=== PATIENT | male | born 1965 | race Caucasian/White ===

== ENCOUNTER 2018-12-30 22:39 | Inpatient (IN) | payer SELFPAY ==
[2018-12-30] MEDS ORDERED: EPINEPHRINE INJ/PF 1 MG/1 ML AMPULE ONE (23:09)
[2018-12-30] MEDS ORDERED: DIPHENHYDRAMINE HCL 50 MG/ML VIAL ONE (23:09)
[2018-12-30] MEDS ORDERED: METHYLPREDNISOLONE INJ 125 MG/2 ML SDV ONE (23:09)
[2018-12-30] MEDS ORDERED: FAMOTIDINE INJ/PF 20 MG/2 ML SDV IV ONE ×2 (23:10→23:25)
--- NOTE | 2018-12-30 23:23 | ER Document Report ---
ED General - General TRAVEL OUTSIDE OF THE [place] IN LAST 30 DAYS: No <NAWAF DEE - Last Filed: 12/31/18 20:20> <MARILEE DOUGHERTY - Last Filed: 01/06/19 15:14> - General Chief Complaint: Rash Stated Complaint: Syncopal episode Time Seen by Provider: 12/30/18 23:14 Notes: Patient is a 53-year-old male that comes emergency department for chief complaint of breaking out into a rash over most of his body just prior to arrival. After arrival patient states he did have a little bit of stomach pain, and then he suddenly became pale and passed out per family. He was caught in the waiting room, he was brought back into the emergency department. Patient denies any current symptoms other than pain, he does have widespread rash, he denies any difficulty swallowing or breathing. When asked he does state that he has had chest pain for the past couple of days intermittently but not severe, he also states he has had a headache. He states he takes eyedrops but he takes no daily medications. He denies past medical history except retinitis. (NAWAF DEE) - Related Data Allergies/Adverse Reactions: prednisone [Prednisone] Allergy (Verified 08/28/13 09:58) Sulfa (Sulfonamide Antibiotics) Allergy (Verified 12/31/18 05:50) Past Medical History - General Information source: Patient, Relative - Social History Smoking Status: Unknown if Ever Smoked Drug Abuse: None Lives with: Family Family History: None - Immunizations Hx Diphtheria, Pertussis, Tetanus Vaccination: Yes <NAWAF DEE - Last Filed: 12/31/18 20:20> Review of Systems - Review of Systems Constitutional: See HPI EENT: No symptoms reported Cardiovascular: See HPI Respiratory: No symptoms reported Gastrointestinal: No symptoms reported Genitourinary: No symptoms reported Male Genitourinary: No symptoms reported Musculoskeletal: No symptoms reported Skin: See HPI Hematologic/Lymphatic: No symptoms reported Neurological/Psychological: See HPI <NAWAF DEE - Last Filed: 12/31/18 20:20> Physical Exam <NAWAF DEE - Last Filed: 12/31/18 20:20> - Vital signs Vitals: Temp Pulse Resp BP Pulse Ox 98.3 F 119 H 20 124/67 95 12/30/18 22:41 12/30/18 22:41 12/30/18 22:41 12/30/18 22:41 12/30/18 22:41 - Notes Notes: GENERAL: Pale and ill-appearing HEAD: Normocephalic, atraumatic. EYES: Pupils equal, round, and reactive to light. Extraocular movements intact. ENT: Oral mucosa moist, tongue midline. Oropharynx unremarkable. Airway patent. Nares patent, no nasal septal hematoma NECK: Full range of motion. Supple. Trachea midline. LUNGS: Clear to auscultation bilaterally, no wheezes, rales, or rhonchi. No re spiratory distress. HEART: Regular rate and rhythm. No murmur ABDOMEN: Soft, non-tender. Non-distended. GENITOURINARY: Deferred EXTREMITIES: Moves all 4 extremities spontaneously. No edema, normal radial and dorsalis pedis pulses bilaterally. No cyanosis. BACK: no cervical, thoracic, lumbar midline tenderness. No saddle anesthesia, normal distal neurovascular exam. Moves all extremities in full range of motion. NEUROLOGICAL: Alert and oriented x3. Normal speech. Cranial nerves II through XII grossly intact. SKIN: Widespread urticaria over the chest, back, arms, legs. Flushed face. (NAWAF DEE) Course - Laboratory Result Diagrams: 12/30/18 23:10 12/31/18 05:28 <NAWAF DEE - Last Filed: 12/31/18 20:20> - Laboratory Result Diagrams: 01/05/19 05:46 01/05/19 05:46 <MARILEE DOUGHERTY - Last Filed: 01/06/19 15:14> - Re-evaluation Re-evalutation: Patient presented with a developing widespread rash over the body which is scattered, erythematous, raised, appears to be hives. He then passed out. When I evaluate the patient he is responsive and awake but with his eyes closed. His face was extremely red along with the generalized rash. He was initially tachycardic but he is not at bedside, he is not hypotensive. Concern for possible anaphylaxis along with reported abdominal pain, he denies that he had chest pain before he passed out. Patient given epinephrine, 25 mg Benadryl, 20 mg of Pepcid, 125 mg of Solu-Medrol. I did find Dr. Whitley and brought him into the trauma bay, he was evaluated at bedside. 12/31/18 00:12 Patient started having shaking chills, he now tells us that he has been having some headaches, he does not have neurologic deficits. However. He does not have nuchal rigidity overtly. However his rash did not resolve with the a ntihistamines and epinephrine. CBC shows leukocytosis at 21.7, 8% bands. Concern for possible meningitis component. Patient only vaguely has a headache, he does not have nuchal rigidity on my exam. Giving 2 g Rocephin now, CAT scan of the head will be performed. EKG showing tachycardia and right bundle branch block. Discussed with Dr. Whitley. 12/31/18 01:02 Patient noted to be getting hypoxic all of a sudden, reevaluated him, initial check today was negative, initial lungs clear, however now I can clearly hear rales in both lung bases. Placed on oxygen temporarily, patient still desat urated into the upper 80s, he has increased work of breathing now. Placed on BiPAP. Updated Dr. Whitley. 12/31/18 02:03 I have been at patient's bedside continuously until now. Unfortunately patient continued to decompensate and even on 100% FiO2 patient was hypoxic at 88% with increasingly labored breathing. I discussed with patient who was still awake and alert, he states he is in agreement with intubation because he is not doing well at this time. I discussed this with and daughter at bedside, they state agreement with this plan. Dr. Whitley came to bedside and patient was in tubated without complication. Patient initially was still 88% for about 30 seconds and then oxygen saturation suddenly began increasing significantly and then maintained at about 98%. I placed a right IJ central line. Patient noted to be febrile with temperature Hooper at 102.4, this just develope d, giving Tylenol. CT will be performed. Patient became somewhat hypotensive, we had to increase his propofol up to 100 mcg to achieve sedation, suspect this is from the propofol, we are easing up on it. CTA is negative for acute findings, does not show the pneumonia I suspected, does not show a blood clot. Because we still do not have a source I am concerned he might have meningitis. I did discuss with family, attempted lumbar puncture, however I was not able to obtain CSF fluid, Dr. Dougherty was at bedside and he also could not obtain CSF fluid based on patient's anatomy. He has been covered previously with Rocephin, vancomycin, and he was also given Levaquin and acyclovir. Will discuss with hospitalist for admission with plan to have interventional radiology perform lumbar puncture later today. I did discuss this in detail with family. Discussed with Dr. Glez, hospitalist, patient admitted to the ICU. (NAWAF DEE) 01/06/19 15:12 Patient initially seen by Dr. Whitley and Nawaf WHITE. Patient required LP before admission and Dr. Whitley was not available and therefore I attempted LP to help rule out meningeal infection. I discussed the risks and benefits of the procedure with the family and went forward with the family. I was unfortunately unable to obtain CSF. Patient already receiving appropriate antibiotics and antivirals. (MARILEE DOUGHERTY) - Vital Signs Vital signs: Temp Pulse Resp BP Pulse Ox 97.7 F 66 16 134/81 H 99 01/05/19 12:27 01/05/19 12:27 01/05/19 12:27 01/05/19 12:27 01/05/19 12:27 - Laboratory Laboratory results interpreted by me: 12/30/18 12/30/18 12/30/18 23:10 23:10 23:10 WBC 21.4 H Plt Count 581 H Seg Neuts % (Manual) 86 H Band Neutrophils % 8 H Lymphocytes % (Manual) 4 L Monocytes % (Manual) 1 L Abs Neuts (Manual) 20.1 H ESR ABG pO2 ABG HCO3 ABG Total CO2 ABG O2 Saturation Sodium 135.6 L Glucose 204 H POC Glucose 167 H Lactic Acid C-Reactive Protein Urine Protein 12/30/18 12/30/18 12/30/18 23:10 23:40 23:58 WBC Plt Count Seg Neuts % (Manual) Band Neutrophils % Lymphocytes % (Manual) Monocytes % (Manual) Abs Neuts (Manual) ESR 30 H ABG pO2 ABG HCO3 ABG Total CO2 ABG O2 Saturation Sodium Glucose POC Glucose Lactic Acid 3.2 H C-Reactive Protein 23.6 H Urine Protein 12/31/18 12/31/18 01:23 01:40 WBC Plt Count Seg Neuts % (Manual) Band Neutrophils % Lymphocytes % (Manual) Monocytes % (Manual) Abs Neuts (Manual) ESR ABG pO2 317.3 H ABG HCO3 19.8 L ABG Total CO2 20.9 L ABG O2 Saturation 99.7 H Sodium Glucose POC Glucose Lactic Acid C-Reactive Protein Urine Protein 30 H Procedures - Central Line right IJ Consent obtained: Yes Central line pre-insertion: Sterile PPE donned, Betadine prep applied, Sterile drapes applied Central line lumen type: Triple Ultrasound guided: Yes Line secured with sutures: Yes Central line post-insertion: Blood return from lumens, Biopatch applied, Sutured, Sterile dressing applied, Position confirmed w/ CXR Number of attempts: 1 Complications: No - Intubation Orotracheal Airway evaluation: Normal anatomy Mallampati Classification: Class 2 Medications: Etomidate Intubation method: Orotracheal Blade type: Tae Blade size: 4 Equipment used: Glidescope ETT size: 7.5 ETT secured at: Teeth ETT secured at (cm): 25 Breath Sounds after Intubation: Equal End tidal CO2 confirmed: Yes Post Intubation Xray: Yes Intubation Complications: No complications <NAWAF DEE - Last Filed: 12/31/18 20:20> - Lumbar Puncture Lumbar puncture Consent obtained: Yes Lumbar puncture pre-procedure: Sterile PPE donned, Chloraprep applied, Sterile drapes applied Patient position: Lying Needle size: 22 Lumbar puncture location: L4-L5 Amount/type of drainage: 0mls Number of attempts: 2 Complications: No <MARILEE DOUGHERTY - Last Filed: 01/06/19 15:14> Critical Care Note - Critical Care Note Total time excluding time spent on procedures (mins): 60 - Sepsis, acute respiratory failure <NAWAF DEE - Last Filed: 12/31/18 20:20> - Critical Care Note Comments: Please allow 60 minutes of critical care time for evaluation and management of this critically ill patient with initially attempts to treat what appeared to be anaphylaxis, management of sepsis with IV fluids, antibiotics. Management of patient had developed acute respiratory failure with oxygen, BiPAP, and ultimately intubation. Management of vent, management of sedation, additional work-up performed, time spent with family members, time spent performing patient reevaluation's. Time spent performing consultation and admission to the ICU. (NAWAF DEE) Discharge - Discharge Admitting Provider: [facility] (Hospitalist) Unit Admitted: ICU <NAWAF DEE - Last Filed: 12/31/18 20:20> <MARILEE DOUGHRETY - Last Filed: 01/06/19 15:14> - Discharge Clinical Impression: Rash, Bandemia Acute respiratory failure Qualifiers: Respiratory failure complication: hypoxia Qualified Code(s): J96.01 - Acute respiratory failure with hypoxia Leukocytosis Qualifiers: Leukocytosis type: unspecified Qualified Code(s): D72.829 - Elevated white blood cell count, unspecified Condition: Fair Disposition: ADMITTED INPATIENT
[2018-12-30] MEDS ORDERED: NITROGLYCERIN 2% OINTMENT 1 GM PACKET TP ONE (23:25)
[2018-12-30] MEDS ORDERED: EPINEPHRINE INJ/PF 1 MG/1 ML AMPULE IM ONE (23:25)
[2018-12-30] MEDS ORDERED: DIPHENHYDRAMINE HCL 50 MG/ML VIAL IV ONE (23:25)
[2018-12-30] MEDS ORDERED: METHYLPREDNISOLONE INJ 125 MG/2 ML SDV IV ONE (23:26)
[2018-12-30 23:32] LABS: HEMATOCRIT 47.8 % (37.9-51.0); HEMOGLOBIN 16.2 g/dL (13.5-17.0); MEAN CORPUSCULAR HEMOGLOBIN 32.5 pg (27.0-33.4); MEAN CORPUSCULAR VOLUME 96 fl (80-97); RED CELL DISTRIBUTION WIDTH 13.6 % (11.5-14.0); WHITE BLOOD COUNT 21.4 10^3/uL (4.0-10.5)
[2018-12-30 23:39] LABS: ALBUMIN 3.9 g/dL (3.5-5.0); ALKALINE PHOSPHATASE 107 U/L (38-126); ANION GAP 11 (5-19); ASPARTATE AMINO TRANSFERASE 24 U/L (17-59); BILIRUBIN,DIRECT 0.3 mg/dL (0.0-0.4); BILIRUBIN,TOTAL 0.3 mg/dL (0.2-1.3); BLOOD UREA NITROGEN 20 mg/dL (7-20); CALCIUM 9.1 mg/dL (8.4-10.2); CARBON DIOXIDE 25 mmol/L (22-30); CHLORIDE 100 mmol/L (98-107); GLUCOSE 204 mg/dL (75-110); POTASSIUM 4.2 mmol/L (3.6-5.0); TOTAL PROTEIN 7.5 g/dL (6.3-8.2)
[2018-12-30 23:50] LABS: ABSOLUTE LYMPHOCYTES# (MANUAL) 0.9 10^3/uL (0.5-4.7); ABSOLUTE MONOCYTES # (MANUAL) 0.2 10^3/uL (0.1-1.4); BAND NEUTROPHILS % (MANUAL) 8 % (3-5); BASOPHILS % (MANUAL) 0 % (0-2); EOSINOPHILS % (MANUAL) 1 % (0-6); LYMPHOCYTES % (MANUAL) 4 % (13-45); MONOCYTES % (MANUAL) 1 % (3-13); PLATELET CLUMPS PRESENT; SEGMENTED NEUTROPHILS % (MAN) 86 % (42-78); TOTAL CELLS COUNTED 100
[2018-12-30 23:53] LABS: POIKILOCYTOSIS SLIGHT; ROULEAUX 1+
[2018-12-30 23:53] LABS: VENOUS BLOOD BASE EXCESS -2.4 mmol/L; VENOUS BLOOD HCO3 24.7 mmol/L (20-32); VENOUS BLOOD PCO2 50.6 mmHg (35-63); VENOUS BLOOD PH 7.31 (7.30-7.42)
--- NOTE | 2018-12-30 23:53 | ER Document Report ---
Doctor's Note Notes: 12/30/18 23:49 Patient seen and evaluated in conjunction with the mid-level provider. I did independently evaluate the patient myself. Please see the physician's sales office assistant note for further detail. Patient reportedly presented to the emergency department with diffuse hives. Passed out at triage. Patient rapidly brought back to the emergency department. Was covered in diffuse hives so potential for acute allergic reaction was considered. Epinephrine initially ordered. Patient then began to develop chest pain after that. Patient was placed on monitor. Having some tachycardia. Began treating his chest pain as well. His rash is improved. Is complaining of a headache as well. Review of systems: Positive for the following: Rash, headache, heart racing, chest pain, syncope. General: Alert + acute distress HEENT: Atraumatic, normocephalic, pupils equal round react to light and accommodation, extraocular muscles are intact, nose is non tender, posterior pharynx is without erythema or exudate. Tongue is unremarkable Heart: Heart rapid, no murmurs, no rubs, no clicks Lungs: Lungs clear to auscultation bilaterally, no wheezes, rhonchi, rales.+ Tachypnea Abdomen: Abdomen is soft, nontender, nondistended, normal bowel sounds Neuro: cranial nerves II through XII intact, reflexes intact, sensation intact, Extremities:Moving all extremities. Equal strength bilaterally in the upper lower extremities. No significant deformity Skin: Patient has a red lacy rash on face, chest, back. Does not appear urticarial. Psych: Normal insight. Normal judgment Assessment and plan: We will give Benadryl, Solu-Medrol, Pepcid. Checking cardiac labs. Checking inflammatory markers. Interesting presentation for sure. Will need to review the labs. If he continues to have rash and symptoms of headache and neck pain may be needed consider doing an LP. He is afebrile at this time. 12/31/18 03:44 Patient began to develop respiratory distress. Oxygen saturation respirations began to decrease. Began to have crackles at the bases of his lungs. Decision was made to proceed immediately with intubation. Patient was intubated. I was at the bedside the whole time with the PA who did perform the procedure. A central line was placed. Broad-spectrum antibiotics was given. Patient sent to CT scan for a CTA of the chest. Awaiting results at this time. Patient is doing much better and oxygenating much better on the vent. Critical Care Note - Critical Care Note Total time excluding time spent on procedures (mins): 35 Comments: Hypoxia, sepsis, medication administration.
[2018-12-30 23:54] LABS: PLATELET COUNT 581 10^3/uL (150-450)
--- NOTE | 2018-12-31 00:04 | RADIOLOGY REPORT (SQ) ---
EXAM DESCRIPTION: [facility]: XR CHEST 1 VIEW CLINICAL HISTORY: 53 years Male, chest pain COMPARISON: None. FINDINGS: Lungs are clear, with no focal infiltrate, pneumothorax, or pleural effusion. Mediastinum is within normal limits for this positioning. Bony structures are unremarkable. IMPRESSION: 1. No acute pulmonary findings.
[2018-12-31] MEDS ORDERED: LIDOCAINE 1% INJ-PF (10 MG/ML) 30 ML SDV INJ ONE ×2 (00:11→03:56)
[2018-12-31] MEDS ORDERED: CEFTRIAXONE 2 GM/D5W RTU 2 GM/50 ML RTUPB IV ONE (00:11)
[2018-12-31] MEDS ORDERED: VANCOMYCIN HCL INJ 1000 MG VIAL IV ONE (00:53)
[2018-12-31] MEDS ORDERED: LEVOFLOXACIN 750 MG/D5W RTU 750 MG/150 ML RTUPB IV ONE (00:57)
--- NOTE | 2018-12-31 01:00 | RADIOLOGY REPORT (SQ) ---
EXAM DESCRIPTION: CT HEAD WITHOUT IV CONTRAST COMPLETED DATE/TME: 12/31/2018 00:08 CLINICAL HISTORY: 53 years, Male, passed out, headache COMPARISON: None. TECHNIQUE: Axial CT images of the brain were obtained without contrast. Sagittal and coronal reformats were performed. [facility] 963 Images stored on PACS. All CT scanners at this facility use dose modulation, iterative reconstruction, and/or weight based dosing when appropriate to reduce radiation dose to as low as reasonably achievable (ALARA). [facility]: Dose Right [facility]: CareDose [facility]: Dose Right [facility]: Teradose 4D [facility]: [employer] LIMITATIONS: None. FINDINGS: There is no acute cortical infarct, hemorrhage, mass, edema, hydrocephalus, or extra-axial fluid collection. The solano-white matter differentiation is preserved. The paranasal sinuses and mastoid air cells are clear. There is no acute fracture. IMPRESSION: No acute intracranial abnormality. TECHNICAL DOCUMENTATION: Quality ID # 436: Final reports with documentation of one or more dose reduction techniques (e.g., Automated exposure control, adjustment of the mA and/or kV according to patient size, use of iterative reconstruction technique) copyright 2011 [employer]- All Rights Reserved
[2018-12-31] MEDS ORDERED: IPRATROPIUM/ALBUTEROL 0.5-2.5 MG/3 ML AMPUL NEB ONE (01:10)
[2018-12-31] MEDS ORDERED: PROPOFOL 1,000 MG/100 ML INFUS..BTL IV ONE ×2 (01:13→03:19)
[2018-12-31] MEDS ORDERED: ETOMIDATE INJ/PF 20 MG/10 ML SDV IV ONE ×2 (01:13→03:50)
[2018-12-31] MEDS ORDERED: KETAMINE HCL INJ 500 MG/10 ML VIAL ONE (01:13)
[2018-12-31] MEDS: PROPOFOL 1,000 MG/100 ML INFUS..BTL IV PRN ×5 (01:20→20:47)
[2018-12-31 01:23] LABS: INTERNATIONAL RATION (INR) 1.01; PARTIAL THROMBOPLASTIN TIME 28.3 SEC (23.5-35.8); PROTHROMBIN TIME 13.3 SEC (11.4-15.4)
[2018-12-31] MEDS ORDERED: FENTANYL CITRATE INJ/PF 100 MCG/2 ML AMPUL ONE ×4 (01:37→04:16)
[2018-12-31] MEDS ORDERED: ACETAMINOPHEN 650 MG SUPP.RECT PR ONE ×2 (01:57→01:58)
[2018-12-31] MEDS ORDERED: ACETAMINOPHEN 325 MG TABLET PO ONE (01:57)
[2018-12-31] MEDS ORDERED: NORMAL SALINE 1000 ML 1,000 ML IV ONE ×2 (02:01)
[2018-12-31] MEDS ORDERED: VECURONIUM BROMIDE INJ 10 MG VIAL IV ONE (02:16)
--- NOTE | 2018-12-31 02:38 | RADIOLOGY REPORT (SQ) ---
EXAM DESCRIPTION: RadLex: XR CHEST 1 VIEW CLINICAL HISTORY: 53 years Male, post intubation COMPARISON: 12/30/2018 at 2346 FINDINGS: There is partial atelectasis in the medial left lower lobe. No pneumothorax or pleural effusion. Endotracheal tube has been placed, tip 2 cm above david. Enteric tube extends into the distal stomach, possibly in the proximal duodenum. No mediastinal widening or shift. Bony structures are unremarkable. IMPRESSION: 1. Intubated 2. Enteric tube tip is either in the distal stomach or proximal duodenum.
--- NOTE | 2018-12-31 02:39 | RADIOLOGY REPORT (SQ) ---
Chest single view on 12/31/2018 at 2:12 AM CLINICAL INDICATION: Central line placement COMPARISON: 12/31/2018 at 1:37 AM FINDINGS: ET tube tip is in the mid to lower thoracic trachea approximately 1.8 cm above the level of the david. NG tube extends into the distal stomach. There is a new right IJ central venous catheter with its tip near the cavoatrial junction. There is no pneumothorax. A few overlying wires are noted. There is continued left lower lung opacity consistent with atelectasis and/or pneumonia. Lungs are otherwise clear. Cardiac, hilar and mediastinal contours are within normal limits. Pulmonary vascularity is within normal limits. IMPRESSION: Continued left lower lung atelectasis and/or pneumonia.
[2018-12-31 03:08] LABS: APPEARANCE,URINE SLIGHTLY-CLOUDY; BILIRUBIN,URINE NEGATIVE (NEGATIVE); GLUCOSE, URINE NEGATIVE (NEGATIVE); KETONES,URINE NEGATIVE (NEGATIVE); LEUKOCYTE ESTERASE,URINE NEGATIVE (NEGATIVE); NITRITE,URINE NEGATIVE (NEGATIVE); PROTEIN,URINE 30 mg/dL (NEGATIVE); URINE SPECIFIC GRAVITY 1.036; UROBILINOGEN,URINE NEGATIVE mg/dL (<2.0)
[2018-12-31 03:10] LABS: COLOR,URINE DARK YELLOW
[2018-12-31] MEDS ORDERED: FENTANYL CITRATE INJ/PF 100 MCG/2 ML AMPUL IV ONE ×4 (03:50→06:06)
[2018-12-31] MEDS ORDERED: ROCURONIUM BROMIDE INJ 50 MG/5 ML VIAL IV ONE (03:51)
--- NOTE | 2018-12-31 03:51 | RADIOLOGY REPORT (SQ) ---
EXAM DESCRIPTION: CT CHEST ANGIOGRAPHY WITHOUT THEN WITH IV CONTRAST COMPLETED DATE/TME: 12/31/2018 00:56 CLINICAL HISTORY: 53 years, Male, hypoxia, tachycardia COMPARISON: None. TECHNIQUE: Axial CT images of the chest were obtained after the administration of IV contrast. MPR and MIP reconstructions were performed. [facility] 943 Images stored on PACS. All CT scanners at this facility use dose modulation, iterative reconstruction, and/or weight based dosing when appropriate to reduce radiation dose to as low as reasonably achievable (ALARA). [facility]: Dose Right [facility]: CareDose [facility]: Dose Right [facility]: Teradose 4D [facility]: [employer] LIMITATIONS: None. FINDINGS: No large central pulmonary embolism is detected. There is suboptimal opacification of the pulmonary arteries. An endotracheal tube terminates approximately 1.2 cm above the david. A nasogastric tube terminates within the stomach. The thoracic aorta appears unremarkable. No evidence of aneurysm or dissection. There is no mediastinal or hilar lymphadenopathy. The lungs are clear except for some bibasilar subsegmental atelectasis. There is no pneumothorax or pleural effusion. : Diverticulosis is noted. There is no acute fracture or subluxation. IMPRESSION: No CT evidence of acute pulmonary embolism. Colonic diverticulosis without evidence of diverticulitis. TECHNICAL DOCUMENTATION: Quality ID # 436: Final reports with documentation of one or more dose reduction techniques (e.g., Automated exposure control, adjustment of the mA and/or kV according to patient size, use of iterative reconstruction technique) copyright 2011 [employer]- All Rights Reserved
[2018-12-31] MEDS ORDERED: ACYCLOVIR SODIUM INJ/PF 500 MG/10 ML SDV IV ONE (04:25)
--- NOTE | 2018-12-31 04:30 | ER Document Report ---
Doctor's Note Notes: 12/31/18 04:28 Patient is a patient of Dr. Whitley and Nawaf Recinoss. Patient apparently has presented with sepsis. Is concerned that there is not a source and may be this could be a case meningitis. Dr. Whitley is about to leave but does not wish to have the patient to have a lumbar puncture. I therefore agreed to assist in doing this for them. I did discuss the risk and benefits to the patient's family. They are agreeable with it. I did prep the patient with chlorhexidine. I did attempt multiple times was unfortunate unable to get any CSF return. Patient does have a history of ankylosing spondylitis likely making it more difficult to really get his vertebral spaces open. He has been covered for meningitis encephalitis with Rocephin, vancomycin, and acyclovir. Patient will be admitted to medical service.
[2018-12-31] MEDS ORDERED: ACETAMINOPHEN 325 MG TABLET NG PRN (04:33)
[2018-12-31] MEDS ORDERED: DEXTROSE 40% GEL 15 GM TUBE PO PRN ×2 (04:33)
[2018-12-31] MEDS ORDERED: GLUCAGON,HUMAN RECOMB 1 MG INJ IM PRN (04:33)
[2018-12-31] MEDS ORDERED: DEXTROSE 50%-WATER 25 GM/50 ML DISP.SYRIN IV PRN ×2 (04:33)
[2018-12-31] MEDS ORDERED: IPRATROPIUM/ALBUTEROL 0.5-2.5 MG/3 ML AMPUL NEB PRN (04:33)
[2018-12-31] MEDS ORDERED: VANCOMYCIN HCL 0 MG in DEXTROSE 5%-WATER 250 ML IV NR (04:45)
[2018-12-31 05:08] LABS: URINE AMPHETAMINES SCREEN NEGATIVE; URINE BARBITURATES SCREEN NEGATIVE; URINE BENZODIAZEPINES SCREEN NEGATIVE; URINE COCAINE SCREEN NEGATIVE; URINE MARIJUANA (THC) SCREEN NEGATIVE; URINE METHADONE SCREEN NEGATIVE; URINE PHENCYCLIDINE SCREEN NEGATIVE
[2018-12-31 05:10] LABS: INTERNATIONAL RATION (INR) 1.09; PARTIAL THROMBOPLASTIN TIME 24.3 SEC (23.5-35.8); PROTHROMBIN TIME 14.1 SEC (11.4-15.4)
[2018-12-31 05:23] LABS: ARTERIAL BLOOD BASE EXCESS -4.7 mmol/L; ARTERIAL BLOOD FIO2 100%; ARTERIAL BLOOD H2CO3 1.07 mmol/L (1.05-1.35); ARTERIAL BLOOD HCO3 19.8 mmol/L (20-24); ARTERIAL BLOOD O2 SATURATION 99.7 % (94-98); ARTERIAL BLOOD PCO2 35.6 mmHg (35-45); ARTERIAL BLOOD PH 7.36 (7.35-7.45); ARTERIAL BLOOD PO2 317.3 mmHg (80-100); ARTERIAL BLOOD TOTAL CO2 20.9 mmol/L (23-27)
[2018-12-31 05:53] LABS: ARTERIAL BLOOD BASE EXCESS -4.8 mmol/L; ARTERIAL BLOOD H2CO3 1.04 mmol/L (1.05-1.35); ARTERIAL BLOOD HCO3 19.7 mmol/L (20-24); ARTERIAL BLOOD PCO2 34.7 mmHg (35-45); ARTERIAL BLOOD PH 7.37 (7.35-7.45); ARTERIAL BLOOD PO2 158.6 mmHg (80-100); ARTERIAL BLOOD TOTAL CO2 20.7 mmol/L (23-27)
[2018-12-31 05:57] LABS: ARTERIAL BLOOD FIO2 50%
[2018-12-31 05:58] LABS: ANION GAP 9 (5-19); BLOOD UREA NITROGEN 19 mg/dL (7-20); CARBON DIOXIDE 22 mmol/L (22-30); CHLORIDE 104 mmol/L (98-107); GLUCOSE 191 mg/dL (75-110)
[2018-12-31] MEDS ORDERED: ACYCLOVIR SODIUM 750 MG in NORMAL SALINE 250 ML IV SCH (06:00)
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
[2018-12-31] MEDS ORDERED: DEXTROSE 5%-WATER 250 ML with NOREPINEPHRINE BITARTRATE 4 MG IV PRN ×2 (06:25)
[2018-12-31] MEDS ORDERED: ACYCLOVIR SODIUM INJ/PF 500 MG/10 ML SDV IV PRN (06:48)
[2018-12-31] MEDS ORDERED: MIDAZOLAM HCL 50 MG/100 ML RTUINJ ONE (06:53)
[2018-12-31] MEDS: NORMAL SALINE 1000 ML 1,000 ML IV PRN ×2 (07:40→09:21)
[2018-12-31] MEDS: HEPARIN SOD (PORCINE) 5,000 UNIT/ML 1 ML VIAL SUBCUT SCH ×3 (07:42→22:19)
[2018-12-31] MEDS: IPRATROPIUM/ALBUTEROL 0.5-2.5 MG/3 ML AMPUL NEB SCH ×2 (08:57→16:04)
[2018-12-31] MEDS: PANTOPRAZOLE SODIUM 40 MG VIAL IV SCH ×2 (10:56→22:19)
[2018-12-31] MEDS: ACYCLOVIR SODIUM 750 MG in NORMAL SALINE 250 ML IV SCH ×2 (10:57→17:05)
[2018-12-31] MEDS: DEXTROSE 5%-NORMAL SALINE 1,000 ML IV PRN (11:00)
--- NOTE | 2018-12-31 11:04 | Progress Note ---
Provider Note Provider Note: This is 53's old male patient who presented with chief complaint of headache and rash for several days duration. At ER patient become unresponsive and severe respiratory distress for which she was emergently intubated. His blood work shows market leukocytosis with bandemia, and lactic acidosis. Meningitis suspected on this patient and he has been empirically started on acyclovir, ceftriaxone, vancomycin and I added dexamethasone to him. Lumbar puncture was attempted in the ER but failed. Patient admitted to ICU and anesthesia successful in doing lumbar puncture. CSF analysis and Gram stain culture are pending. Accepted this patient.
[2018-12-31] MEDS: MIDAZOLAM HCL 50 MG/100 ML RTUINJ IV PRN ×3 (12:09→22:20)
[2018-12-31] MEDS: VANCOMYCIN HCL 1,250 MG in DEXTROSE 5%-WATER 250 ML IV SCH ×2 (12:10→20:48)
[2018-12-31 12:22] LABS: APPEARANCE ALL TUBES CLEAR; COLOR ALL TUBES COLORLESS; CSF TOTAL VOLUME 28.1 CC; CSF TUBE NUMBER 3; VOLUME TUBE 1 6.8 CC; VOLUME TUBE 2 7.8 CC; VOLUME TUBE 3 6.5 CC
[2018-12-31 12:23] LABS: RED BLOOD CELL,CSF 0 /uL (0-10); WHITE BLOOD CELL,CSF 0 /uL (0-5)
[2018-12-31] MEDS ORDERED: METHYLPREDNISOLONE INJ 125 MG/2 ML SDV IV SCH (14:00)
[2018-12-31] MEDS: DEXAMETHASONE SOD PHOS INJ 10 MG/1 ML VIAL IV SCH ×2 (14:21→22:19)
--- NOTE | 2018-12-31 18:11 | Progress Note ---
Provider Note Provider Note: ID Telephone Consultation Note Asked to review chart of Mr Rios, a 53 year old man who presented to [facility] today 12/31/18 with acute onset of diffuse rash and an episode of syncope. The patient was described as having widespread scattered erythematous raised skin lesions over his body that appeared to be hives and a flushed face when he was seen by the mid-level ED provider. He complained of headache and chest pain after he received epinephrine, antihistamines and solu- medrol. Family members also endorsed that he had several days of headache prior to presentation, no known sick contacts, no previous history of meningitis. When evaluated by the ED attending, the patient was not febrile initially; he was noted to have unremarkable ENT exam including no pharyngeal exudates or injection, no cardiac murmurs, clear lungs, tachypnea, no focal neurological deficits, and a lacy red rash on his face, chest and back that no longer appeared urticarial. The patient later developed worsening hypoxia in the ED along with rales in the bases, failed a trial of BiPAP, and required intubation for progressively labored breathing. Labs notable for WBC count 21, plts 581, lactic acid 3.2, sodium 135, AST and ALT WNL, BNP not elevated. LP performed - CSF clear colorless, 0 WBC, 0 RBCs reported. 2 sets of Blood cultures, CSF gram stain and culture, urine legionella antigen, and mycoplasma serologies ordered - all pending. Imaging has included CXR - no acute cardiopulmonary process CTA chest - no PE, bibasilar subsegmental atelectasis Repeat CXR read as showing partial atelectasis or consolidation in medial L lower lobe CT head without IV contrast - no acute intracranial abnormality Impression/Recommendations - Differential diagnosis for fever and rash is extensive. Description of patient having hives when he presented - It's uncommon for adults to have infection- related urticaria, and it is not associated with specific infectious etiologies (in contrast to rashes like vesicles on erythematous base that would suggest HSV or VZV, for example). - Question of splenectomy history has been posed given his physical exam, and if so, splenctomized patients are at increased risk for sepsis from encapsulated organisms, such as Streptococcus pneumoniae, Haemophilus influenzae, Neisseria species, Capnocytophaga species. Perhaps family members would be to confirm splenectomy history or features like Conner-Raven bodies could be looked for on CBC. - Consider adding HIV test - While awaiting results of blood cultures, current antibiotic therapy is reasonable. - Little information is available at present, apart from CSF formula, which is not consistent with meningitis. - If he does not have a rash consistent with chickenpox or shingles, acyclovir can be discontinued. - With it currently being summer in [place], potential for tick borne illnesses (e.g. RMSF and ehrlichiosis) would need to be kept in mind if there is any tick exposure, although no laboratory features point in this direction, and rash description is also not consistent with RMSF. Would query family regarding risk and if any concern, consider starting doxycycline. Kartik Perez MD [facility] Infectious Diseases pager [phone]
[2018-12-31] MEDS ORDERED: CEFTRIAXONE 1 GM/D5W RTU 1 GM/50 ML RTUPB IV SCH (22:00)
[2018-12-31] MEDS: CEFTRIAXONE SODIUM 1,000 MG in DEXTROSE 5%-WATER 50 ML IV SCH (22:19)
[2019-01-01] MEDS: IPRATROPIUM/ALBUTEROL 0.5-2.5 MG/3 ML AMPUL NEB SCH ×3 (00:29→16:15)
[2019-01-01] MEDS: ACYCLOVIR SODIUM 750 MG in NORMAL SALINE 250 ML IV SCH ×2 (01:57→10:38)
[2019-01-01] MEDS: MIDAZOLAM HCL 50 MG/100 ML RTUINJ IV PRN ×2 (04:24→11:15)
[2019-01-01] MEDS: VANCOMYCIN HCL 1,250 MG in DEXTROSE 5%-WATER 250 ML IV SCH ×2 (04:24→12:19)
[2019-01-01 04:40] LABS: ARTERIAL BLOOD BASE EXCESS -1.5 mmol/L; ARTERIAL BLOOD H2CO3 1.24 mmol/L (1.05-1.35); ARTERIAL BLOOD HCO3 23.6 mmol/L (20-24); ARTERIAL BLOOD O2 SATURATION 86.3 % (94-98); ARTERIAL BLOOD PCO2 41.1 mmHg (35-45); ARTERIAL BLOOD PH 7.38 (7.35-7.45); ARTERIAL BLOOD PO2 52.3 mmHg (80-100); ARTERIAL BLOOD TOTAL CO2 24.9 mmol/L (23-27)
[2019-01-01 04:42] LABS: ARTERIAL BLOOD FIO2 35%
[2019-01-01 04:49] LABS: ABSOLUTE MONOCYTES (AUTO) 0.4 10^3/uL (0.1-1.4); ABSOLUTE NEUT (AUTO) 13.7 10^3/uL (1.7-8.2); BASOPHILS % (AUTO) 0.2 % (0-2); HEMATOCRIT 36.8 % (37.9-51.0); LYMPHOCYTES % (AUTO) 6.6 % (13-45); MEAN CORPUSCULAR HGB CONC 33.5 g/dL (32.0-36.0); MEAN CORPUSCULAR VOLUME 96 fl (80-97); MONOCYTES % (AUTO) 2.3 % (3-13); PLATELET COUNT 387 10^3/uL (150-450); RED BLOOD COUNT 3.85 10^6/uL (4.35-5.55); RED CELL DISTRIBUTION WIDTH 13.4 % (11.5-14.0); SEGMENTED NEUTROPHILS % (AUTO) 90.9 % (42-78); TOTAL CELLS COUNTED % (AUTO) 100 %
[2019-01-01 04:53] LABS: HEMOGLOBIN 12.3 g/dL (13.5-17.0)
[2019-01-01 05:12] LABS: ANION GAP 9 (5-19); BLOOD UREA NITROGEN 13 mg/dL (7-20); CALCIUM 8.3 mg/dL (8.4-10.2); CARBON DIOXIDE 23 mmol/L (22-30); CHLORIDE 104 mmol/L (98-107); GLUCOSE 171 mg/dL (75-110); POTASSIUM 4.4 mmol/L (3.6-5.0)
[2019-01-01] MEDS: HEPARIN SOD (PORCINE) 5,000 UNIT/ML 1 ML VIAL SUBCUT SCH ×3 (06:26→21:00)
[2019-01-01] MEDS: DEXAMETHASONE SOD PHOS INJ 10 MG/1 ML VIAL IV SCH (06:26)
[2019-01-01] MEDS: PROPOFOL 1,000 MG/100 ML INFUS..BTL IV PRN (06:46)
[2019-01-01 08:45] LABS: ARTERIAL BLOOD BASE EXCESS -1.7 mmol/L; ARTERIAL BLOOD FIO2 40%; ARTERIAL BLOOD H2CO3 0.89 mmol/L (1.05-1.35); ARTERIAL BLOOD O2 SATURATION 98.8 % (94-98); ARTERIAL BLOOD PCO2 29.6 mmHg (35-45); ARTERIAL BLOOD PH 7.47 (7.35-7.45); ARTERIAL BLOOD PO2 131.7 mmHg (80-100); ARTERIAL BLOOD TOTAL CO2 21.9 mmol/L (23-27)
[2019-01-01] MEDS: DEXTROSE 5%-NORMAL SALINE 1,000 ML IV PRN ×2 (08:45→18:00)
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
--- NOTE | 2019-01-01 08:54 | RADIOLOGY REPORT (SQ) ---
EXAM DESCRIPTION: CHEST SINGLE VIEW COMPLETED DATE/TIME: 01/01/2019 6:10 am REASON FOR STUDY: pna/resp failure COMPARISON: CT chest 12/31/2018 Chest films 12/30/2018, 12/31/2018 EXAM PARAMETERS: NUMBER OF VIEWS: One view. TECHNIQUE: Single frontal radiographic view of the chest acquired. RADIATION DOSE: NA LIMITATIONS: None. FINDINGS: LUNGS AND PLEURA: Bandlike consolidation at the left lung base likely retrocardiac atelect asis. No gross fluffy alveolar infiltrates worrisome for pulmonary edema. No pleural effusion or pneumothorax. MEDIASTINUM AND HILAR STRUCTURES: No masses. Contour normal. HEART AND VASCULAR STRUCTURES: Heart normal in size. Normal vasculature. BONES: No acute findings. HARDWARE: Endotracheal tube tip 4 cm above the david. Nasogastric tube tip and side port in the sto mach. Right jugular central line tip in the right atrium. OTHER: No other significant finding. IMPRESSION: Bandlike left retrocardiac atelectasis. Tubes and lines in good positioning TECHNICAL DOCUMENTATION: JOB ID: [id number] [employer]- All Rights Reserved Reading location - IP/workstation name: [email or web address]
[2019-01-01] MEDS ORDERED: NORMAL SALINE INJ/PF 0.9% 10 ML SDV IV PRN (09:05)
[2019-01-01] MEDS: PANTOPRAZOLE SODIUM 40 MG VIAL IV SCH ×2 (10:38→21:00)
[2019-01-01 12:31] LABS: VANCOMYCIN,TROUGH 9.1 ug/mL (5.0-20.0)
[2019-01-01] MEDS ORDERED: DEXAMETHASONE SOD PHOSPHATE INJ 4 MG/1 ML VIAL ONE (14:29)
[2019-01-01] MEDS: KETOROLAC TROMETHAMINE INJ/PF 30 MG/1 ML SDV IV PRN ×2 (16:57→23:52)
[2019-01-01] MEDS: VANCOMYCIN HCL 1,500 MG in DEXTROSE 5%-WATER 250 ML IV SCH ×2 (16:59→23:53)
[2019-01-01] MEDS ORDERED: ACETAMINOPHEN 325 MG TABLET PO PRN (19:00)
[2019-01-01] MEDS: CEFTRIAXONE SODIUM 1,000 MG in DEXTROSE 5%-WATER 50 ML IV SCH (21:00)
[2019-01-01] MEDS ORDERED: METOPROLOL TARTRATE PF/INJ 5 MG/5 ML SDV IV PRN (22:12)
[2019-01-01] MEDS ORDERED: DEXTROSE 5%-NORMAL SALINE 1,000 ML IV PRN (22:14)
[2019-01-02] MEDS: IPRATROPIUM/ALBUTEROL 0.5-2.5 MG/3 ML AMPUL NEB SCH ×2 (00:25→08:15)
[2019-01-02] MEDS ORDERED: NALBUPHINE HCL INJ 10 MG/1 ML AMPULE IV PRN (01:12)
[2019-01-02] MEDS ORDERED: HYDRALAZINE HCL INJ/PF 20 MG/1 ML SDV IV ONE (01:45)
[2019-01-02] MEDS: HEPARIN SOD (PORCINE) 5,000 UNIT/ML 1 ML VIAL SUBCUT SCH ×3 (05:24→22:39)
[2019-01-02] MEDS: VANCOMYCIN HCL 1,500 MG in DEXTROSE 5%-WATER 250 ML IV SCH (05:24)
[2019-01-02 07:04] LABS: ARTERIAL BLOOD BASE EXCESS -0.6 mmol/L; ARTERIAL BLOOD FIO2 ROOM AIR; ARTERIAL BLOOD H2CO3 1.16 mmol/L (1.05-1.35); ARTERIAL BLOOD HCO3 23.9 mmol/L (20-24); ARTERIAL BLOOD O2 SATURATION 95.7 % (94-98); ARTERIAL BLOOD PCO2 38.6 mmHg (35-45); ARTERIAL BLOOD PH 7.41 (7.35-7.45); ARTERIAL BLOOD PO2 78.1 mmHg (80-100)
[2019-01-02 07:05] LABS: HEMATOCRIT 35.5 % (37.9-51.0); HEMOGLOBIN 11.7 g/dL (13.5-17.0); MEAN CORPUSCULAR HEMOGLOBIN 31.4 pg (27.0-33.4); MEAN CORPUSCULAR HGB CONC 32.8 g/dL (32.0-36.0); MEAN CORPUSCULAR VOLUME 96 fl (80-97); PLATELET COUNT 376 10^3/uL (150-450); RED BLOOD COUNT 3.72 10^6/uL (4.35-5.55); RED CELL DISTRIBUTION WIDTH 13.7 % (11.5-14.0); WHITE BLOOD COUNT 26.7 10^3/uL (4.0-10.5)
[2019-01-02 07:12] LABS: ANION GAP 6 (5-19); BLOOD UREA NITROGEN 19 mg/dL (7-20); CALCIUM 8.5 mg/dL (8.4-10.2); CARBON DIOXIDE 27 mmol/L (22-30); CHLORIDE 105 mmol/L (98-107); GLUCOSE 153 mg/dL (75-110); PHOSPHORUS 4.1 mg/dL (2.5-4.5); POTASSIUM 4.3 mmol/L (3.6-5.0)
--- NOTE | 2019-01-02 07:39 | EKG REPORT ---
SEVERITY:- ABNORMAL ECG - SINUS ARRHYTHMIA, RATE 77-96 PROBABLE LEFT ATRIAL ABNORMALITY IVCD, CONSIDER ATYPICAL RBBB : Confirmed by: Silvio Jose MD 02-Jan-2019 07:38:49
[2019-01-02 07:51] LABS: ABSOLUTE LYMPHOCYTES# (MANUAL) 2.4 10^3/uL (0.5-4.7); ABSOLUTE MONOCYTES # (MANUAL) 0.8 10^3/uL (0.1-1.4); BASOPHILS % (MANUAL) 0 % (0-2); EOSINOPHILS % (MANUAL) 0 % (0-6); LYMPHOCYTES % (MANUAL) 7 % (13-45); MONOCYTES % (MANUAL) 3 % (3-13); SEGMENTED NEUTROPHILS % (MAN) 88 % (42-78); TOTAL CELLS COUNTED 100
[2019-01-02 07:52] LABS: BURR CELLS 1+; HOWELL-JOLLY BODIES PRESENT; OVALOCYTES 1+; PLATELET COMMENT ADEQUATE; POIKILOCYTOSIS 1+
--- NOTE | 2019-01-02 08:17 | RADIOLOGY REPORT (SQ) ---
EXAM DESCRIPTION: CHEST SINGLE VIEW COMPLETED DATE/TIME: 01/02/2019 6:21 am REASON FOR STUDY: pna/resp fail COMPARISON: 01/01/2019 EXAM PARAMETERS: NUMBER OF VIEWS: One view. TECHNIQUE: Single frontal radiographic view of the chest acquired. RADIATION DOSE: NA LIMITATIONS: None. FINDINGS: LUNGS AND PLEURA: Improved biapical left basilar aeration. Minimal residual patchy left b asilar opacities, likely atelectasis. No large effusion. No appreciable pneumothorax. MEDIASTINUM AND HILAR STRUCTURES: Stable. HEART AND VASCULAR STRUCTURES: Stable. Atherosclerotic aorta. BONES: No acute findings. HARDWARE: Extubation and removal of the enteric tube. Right internal jugular central venous catheter tip overlies right atrium. OTHER: No other significant finding. IMPRESSION: Extubation. Improved aeration with minimal residual left basilar opacities, likely atelectasis. TECHNICAL DOCUMENTATION: JOB ID: [id number]- All Rights Reserved Reading location - IP/workstation name: [email or web address]
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
[2019-01-02 09:51] LABS: CREATINE KINASE MB 0.31 ng/mL (<4.55)
[2019-01-02 10:00] LABS: TROPONIN I < 0.012 ng/mL
--- NOTE | 2019-01-02 12:20 | EKG REPORT ---
SEVERITY:- ABNORMAL ECG - SINUS BRADYCARDIA PROBABLE LEFT ATRIAL ABNORMALITY RIGHT BUNDLE BRANCH BLOCK PROBABLE INFERIOR INFARCT, AGE INDETERMINATE : Confirmed by: Silvio Jose MD 02-Jan-2019 12:19:54
[2019-01-02] MEDS ORDERED: IPRATROPIUM/ALBUTEROL 0.5-2.5 MG/3 ML AMPUL NEB PRN (13:52)
[2019-01-02] MEDS: KETOROLAC TROMETHAMINE INJ/PF 30 MG/1 ML SDV IV PRN ×2 (14:22→22:20)
[2019-01-02] MEDS: PANTOPRAZOLE SODIUM 40 MG TABLET.DR PO SCH ×2 (14:22→18:18)
[2019-01-02 17:11] LABS: CREATINE KINASE MB 0.29 ng/mL (<4.55)
[2019-01-02 17:17] LABS: TROPONIN I < 0.012 ng/mL
[2019-01-03 01:11] LABS: CREATINE KINASE MB < 0.22 ng/mL (<4.55); TROPONIN I < 0.012 ng/mL
[2019-01-03] MEDS: HEPARIN SOD (PORCINE) 5,000 UNIT/ML 1 ML VIAL SUBCUT SCH ×3 (05:21→22:30)
[2019-01-03] MEDS: PANTOPRAZOLE SODIUM 40 MG TABLET.DR PO SCH ×2 (05:21→18:16)
[2019-01-03] MEDS: KETOROLAC TROMETHAMINE INJ/PF 30 MG/1 ML SDV IV PRN ×2 (05:22→12:32)
[2019-01-03 06:05] LABS: HEMATOCRIT 35.7 % (37.9-51.0); HEMOGLOBIN 11.8 g/dL (13.5-17.0); MEAN CORPUSCULAR HEMOGLOBIN 31.7 pg (27.0-33.4); MEAN CORPUSCULAR HGB CONC 33.2 g/dL (32.0-36.0); MEAN CORPUSCULAR VOLUME 95 fl (80-97); PLATELET COUNT 381 10^3/uL (150-450); RED BLOOD COUNT 3.74 10^6/uL (4.35-5.55); RED CELL DISTRIBUTION WIDTH 13.4 % (11.5-14.0); WHITE BLOOD COUNT 22.4 10^3/uL (4.0-10.5)
[2019-01-03 06:14] LABS: ANION GAP 5 (5-19); BLOOD UREA NITROGEN 20 mg/dL (7-20); CALCIUM 8.4 mg/dL (8.4-10.2); CARBON DIOXIDE 29 mmol/L (22-30); CHLORIDE 104 mmol/L (98-107); GLUCOSE 116 mg/dL (75-110); POTASSIUM 4.1 mmol/L (3.6-5.0)
[2019-01-03 07:20] LABS: MYCOPLASMA PNEUMONIAE IGG AB 405 U/mL (0-99); MYCOPLASMA PNEUMONIAE IGM AB <770 U/mL (0-769)
[2019-01-03 07:23] LABS: ALBUMIN 2.8 g/dL (3.5-5.0); ALKALINE PHOSPHATASE 52 U/L (38-126); ASPARTATE AMINO TRANSFERASE 20 U/L (17-59); BILIRUBIN,DIRECT 0.2 mg/dL (0.0-0.4); BILIRUBIN,TOTAL 0.4 mg/dL (0.2-1.3); TOTAL PROTEIN 5.7 g/dL (6.3-8.2)
[2019-01-03 07:40] LABS: ABSOLUTE LYMPHOCYTES# (MANUAL) 8.7 10^3/uL (0.5-4.7); ABSOLUTE MONOCYTES # (MANUAL) 1.1 10^3/uL (0.1-1.4); BASOPHILS % (MANUAL) 0 % (0-2); EOSINOPHILS % (MANUAL) 0 % (0-6); LYMPHOCYTES % (MANUAL) 38 % (13-45); MONOCYTES % (MANUAL) 5 % (3-13); SEGMENTED NEUTROPHILS % (MAN) 56 % (42-78); TOTAL CELLS COUNTED 100
[2019-01-03 07:41] LABS: BURR CELLS 1+; PLATELET COMMENT ADEQUATE; POIKILOCYTOSIS 1+; SCHISTOCYTES SLIGHT
[2019-01-03] MEDS: BUTALB/ACETAMINOPHEN/CAFFEINE 1 TAB EACH PO PRN ×2 (16:26→22:30)
--- NOTE | 2019-01-03 21:12 | PDOC PROGRESS REPORT ---
Subjective Progress Note for:: 01/03/19 Subjective:: Patient is resting in bed with his eyes closed. Is complaining of significant headache and neck ache. Also had abdominal discomfort but this was relieved with repositioning of his Hooper catheter. Large amount of urine drained when he sat at the edge of the bed. Reason For Visit: SEPSIS, MENINGITIS, ACUTE RESP FAILURE Physical Exam Vital Signs: Temp Pulse Resp BP Pulse Ox 98.2 F 65 16 137/87 H 97 01/03/19 11:07 01/03/19 11:07 01/03/19 11:07 01/03/19 11:07 01/03/19 11:07 Intake & Output 01/02/19 01/03/19 01/04/19 06:59 06:59 06:59 Intake Total 1736 480 260 Output Total 3120 930 775 Balance -1384 -450 -515 Weight 86.5 kg 79.4 kg General appearance: PRESENT: cooperative, severe distress - Moderate to severe distress, well-developed Head exam: PRESENT: atraumatic, normocephalic Eye exam: PRESENT: conjunctiva pink. ABSENT: scleral icterus Ear exam: PRESENT: normal external ear exam Mouth exam: PRESENT: dry mucosa, tongue midline Neck exam: PRESENT: tenderness - Posteriorly. No rigidity. ABSENT: meningismus Respiratory exam: PRESENT: clear to auscultation federico, symmetrical, unlabored. ABSENT: rales, rhonchi, tachypnea, wheezes Cardiovascular exam: PRESENT: RRR, +S1, +S2 GI/Abdominal exam: PRESENT: normal bowel sounds, soft. ABSENT: distended, tenderness Gentrourinary exam: PRESENT: indwelling catheter Extremities exam: ABSENT: joint swelling, pedal edema Musculoskeletal exam: PRESENT: normal inspection Neurological exam: PRESENT: alert, awake, oriented to person, oriented to place, oriented to time, oriented to situation, CN II-XII grossly intact Psychiatric exam: PRESENT: appropriate affect - Affect reflects his discomfort. ABSENT: agitated, anxious Focused psych exam: PRESENT: delusional, restlessness Results Laboratory Results: 01/03/19 05:18 01/03/19 05:18 01/03/19 01/03/19 05:18 05:18 WBC 22.4 H RBC 3.74 L Hgb 11.8 L Hct 35.7 L MCV 95 MCH 31.7 MCHC 33.2 RDW 13.4 Plt Count 381 Seg Neutrophils % Not Reportable Lymphocytes % Not Reportable Monocytes % Not Reportable Eosinophils % Not Reportable Basophils % Not Reportable Absolute Neutrophils Not Reportable Absolute Lymphocytes Not Reportable Absolute Monocytes Not Reportable Absolute Eosinophils Not Reportable Absolute Basophils Not Reportable Sodium 138.1 Potassium 4.1 Chloride 104 Carbon Dioxide 29 Anion Gap 5 BUN 20 Creatinine 0.51 L Est GFR ( Amer) > 60 Est GFR (Non-Af Amer) > 60 Glucose 116 H Calcium 8.4 Magnesium 2.2 Total Bilirubin 0.4 AST 20 Alkaline Phosphatase 52 Total Protein 5.7 L Albumin 2.8 L 12/31/18 10:30 Cerebral Spinal Fluid - Tube 2 (Csf) Gram Stain - Final 12/31/18 10:30 Cerebral Spinal Fluid - Tube 2 (Csf) CSF Culture - Final NO GROWTH 3 DAYS 12/30/18 12/30/18 12/31/18 23:10 23:10 05:28 Creatine Kinase CK-MB (CK-2) Troponin I < 0.012 < 0.012 NT-Pro-B Natriuret Pep 12/31/18 01/02/19 01/02/19 12:04 09:00 09:00 Creatine Kinase 32 L CK-MB (CK-2) 0.31 Troponin I < 0.012 < 0.012 NT-Pro-B Natriuret Pep 01/02/19 01/02/19 01/03/19 16:15 16:15 00:15 Creatine Kinase 21 L 28 L CK-MB (CK-2) 0.29 Troponin I < 0.012 NT-Pro-B Natriuret Pep 01/03/19 00:15 Creatine Kinase CK-MB (CK-2) < 0.22 Troponin I < 0.012 NT-Pro-B Natriuret Pep Impressions: Head CT 12/31/18 00:08 IMPRESSION: No acute intracranial abnormality. TECHNICAL DOCUMENTATION: Quality ID # 436: Final reports with documentation of one or more dose reduction techniques (e.g., Automated exposure control, adjustment of the mA and/or kV according to patient size, use of iterative reconstruction technique) copyright 2011 [employer]- All Rights Reserved Chest/Abdomen CTA 12/31/18 00:56 IMPRESSION: No CT evidence of acute pulmonary embolism. Colonic diverticulosis without evidence of diverticulitis. TECHNICAL DOCUMENTATION: Quality ID # [id number]: Final reports with documentation of one or more dose reduction techniques (e.g., Automated exposure control, adjustment of the mA and/or kV according to patient size, use of iterative reconstruction technique) copyright 2011 [employer]- All Rights Reserved Chest X-Ray 01/02/19 06:00 IMPRESSION: Extubation. Improved aeration with minimal residual left basilar opacities, likely atelectasis. Assessment and Plan - Diagnosis (1) Acute respiratory failure Qualifiers: Respiratory failure complication: hypoxia Qualified Code(s): J96.01 - Acute respiratory failure with hypoxia Is this a current diagnosis for this admission?: Yes Plan: 01/03/2019-acute respiratory failure resolved (2) Encephalopathy acute Is this a current diagnosis for this admission?: Yes Plan: 01/03/2019-patient currently without encephalopathy. It was felt to be due to possible infection. All cultures were negative. He did have a positive mycoplasma IgG but the IgM was negative. He still has a headache. His white blood cell count did increase after his medications were stopped. If his headache persists consider MRI scan. (3) Leukocytosis Qualifiers: Leukocytosis type: unspecified Qualified Code(s): D72.829 - Elevated white blood cell count, unspecified Is this a current diagnosis for this admission?: Yes Plan: The patient's initial white count was greater than 20,000. With initiation of treatment it dropped to 15,000 but subsequently went up to 26,000. It is imp roved today but is still 22,000. He was on steroids and his white count may certainly continue to decrease as the steroids have been discontinued. We will continue to monitor. I do not believe there is evidence of acute infection at this time. (4) Meningitis Is this a current diagnosis for this admission?: Yes Plan: 01/03/2019-meningitis was suspected. Number puncture was eventually obtained and there were no white blood cells. Patient still has a headache. If he had encephalopathy I would expect some inflammatory changes in the spinal fluid as well. His neck was tender. As noted above if his headaches do not improve then consider MRI study. (5) Rash Is this a current diagnosis for this admission?: No Plan: 01/03/2019-resolved. (6) Headache Qualifiers: Headache type: unspecified Intractability: intractable Is this a current diagnosis for this admission?: Yes Plan: The patient was complaining of significant headache. Upon further questioning the patient does have a history of headache. This could be a migraine type headache. It is unclear at this time. Tension headache with occipital tenderness is also a possibility. We will try Fioricet. The patient takes large caffeine boluses his headaches tend to resolve. We will assess his response to Fioricet and reevaluate tomorrow. As noted above if there is no r esolution or if clinical suspicion warrants I will obtain an MRI tomorrow. (7) H/O splenectomy Is this a current diagnosis for this admission?: No - Time Time Spent with patient: 25-34 minutes Medications reviewed and adjusted accordingly: Yes
[2019-01-04] MEDS: HEPARIN SOD (PORCINE) 5,000 UNIT/ML 1 ML VIAL SUBCUT SCH ×3 (05:34→21:25)
[2019-01-04] MEDS: BUTALB/ACETAMINOPHEN/CAFFEINE 1 TAB EACH PO PRN ×3 (05:34→20:31)
[2019-01-04] MEDS: PANTOPRAZOLE SODIUM 40 MG TABLET.DR PO SCH ×2 (05:34→16:32)
[2019-01-04 06:16] LABS: ALBUMIN 3.3 g/dL (3.5-5.0); ALKALINE PHOSPHATASE 65 U/L (38-126); ANION GAP 8 (5-19); ASPARTATE AMINO TRANSFERASE 33 U/L (17-59); BILIRUBIN,DIRECT 0.3 mg/dL (0.0-0.4); BILIRUBIN,TOTAL 0.6 mg/dL (0.2-1.3); BLOOD UREA NITROGEN 13 mg/dL (7-20); C-REACTIVE PROTEIN 28.6 mg/L (<10.0); CALCIUM 8.6 mg/dL (8.4-10.2); CARBON DIOXIDE 28 mmol/L (22-30); CHLORIDE 101 mmol/L (98-107); GLUCOSE 115 mg/dL (75-110); POTASSIUM 4.1 mmol/L (3.6-5.0); TOTAL PROTEIN 6.7 g/dL (6.3-8.2)
[2019-01-04] MEDS: KETOROLAC TROMETHAMINE INJ/PF 30 MG/1 ML SDV IV PRN ×2 (08:10→14:57)
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
--- NOTE | 2019-01-04 19:05 | RADIOLOGY REPORT (SQ) ---
EXAM DESCRIPTION: MRI HEAD WITHOUT COMPLETED DATE/TIME: 01/04/2019 6:42 pm REASON FOR STUDY: Meningitis ruled out still with headache/neck pain COMPARISON: None. TECHNIQUE: Multiplanar imaging includes non-contrasted T1, T2, FLAIR, and diffusion with ADC map seq uences. Images stored on PACS. LIMITATIONS: None. FINDINGS: ANATOMY: No anomalies. Normal vascular flow voids. Pituitary fossa normal. CSF SPACES: Normal in size and contour. No hemorrhage. CEREBRUM: Sulci and gyri normal in size and contour. Normal white matter signal on FLAIR imaging. No evidence of hemorrhage, mass, or extraaxial fluid collection. POSTERIOR FOSSA: No signal alteration. No hemorrhage. No edema, masses or mass effect. Internal evelio tory canals, cerebello-pontine angles, mastoids normal. DIFFUSION IMAGING: Negative for acute or sub-acute infarction. ORBITS: No masses. Globes normal. PARANASAL SINUSES: No fluid levels. Mucosa normal. OTHER: No other significant finding. IMPRESSION: NORMAL MRI OF THE BRAIN WITHOUT INTRAVENOUS GADOLINIUM CONTRAST. EVIDENCE OF ACUTE STROKE: NO. TECHNICAL DOCUMENTATION: JOB ID: [id number] [employer]- All Rights Reserved Reading location - IP/workstation name: [email or web address]
[2019-01-05] MEDS: HEPARIN SOD (PORCINE) 5,000 UNIT/ML 1 ML VIAL SUBCUT SCH (05:48)
[2019-01-05] MEDS: BUTALB/ACETAMINOPHEN/CAFFEINE 1 TAB EACH PO PRN (05:48)
[2019-01-05] MEDS: PANTOPRAZOLE SODIUM 40 MG TABLET.DR PO SCH (05:49)
[2019-01-05 06:32] LABS: ABSOLUTE BASOPHILS # (AUTO) 0.2 10^3/uL (0.0-0.2); ABSOLUTE EOSINOPHILS # (AUTO) 0.5 10^3/uL (0.0-0.6); ABSOLUTE MONOCYTES (AUTO) 0.9 10^3/uL (0.1-1.4); ABSOLUTE NEUT (AUTO) 8.1 10^3/uL (1.7-8.2); EOSINOPHILS % (AUTO) 3.3 % (0-6); HEMATOCRIT 42.5 % (37.9-51.0); LYMPHOCYTES % (AUTO) 38.2 % (13-45); MEAN CORPUSCULAR HEMOGLOBIN 31.8 pg (27.0-33.4); MEAN CORPUSCULAR HGB CONC 33.8 g/dL (32.0-36.0); MEAN CORPUSCULAR VOLUME 94 fl (80-97); PLATELET COUNT 543 10^3/uL (150-450); RED BLOOD COUNT 4.52 10^6/uL (4.35-5.55); RED CELL DISTRIBUTION WIDTH 13.3 % (11.5-14.0); SEGMENTED NEUTROPHILS % (AUTO) 51.5 % (42-78); TOTAL CELLS COUNTED % (AUTO) 100 %; WHITE BLOOD COUNT 15.7 10^3/uL (4.0-10.5)
[2019-01-05 06:50] LABS: ANION GAP 9 (5-19); BLOOD UREA NITROGEN 14 mg/dL (7-20); CALCIUM 8.7 mg/dL (8.4-10.2); CARBON DIOXIDE 25 mmol/L (22-30); CHLORIDE 103 mmol/L (98-107); GLUCOSE 148 mg/dL (75-110); POTASSIUM 4.2 mmol/L (3.6-5.0)
[2019-01-05 07:01] LABS: HEMOGLOBIN 14.4 g/dL (13.5-17.0)
[2019-01-05] MEDS ORDERED: LIDOCAINE 2% VISCOUS SOLN 20 ML UDCUP PO PRN (10:35)
[2019-01-05] MEDS ORDERED: PENICILLIN V POTASSIUM 500 MG TABLET PO SCH (12:00)
[2019-01-05 12:31] VITALS: BP 134/81
--- NOTE | 2019-01-14 13:17 | PDOC DISCHARGE SUMMARY ---
General - Admit/Disc Date/PCP Admission Date/Primary Care Provider: 12/31/18 04:37 Discharge Date: 01/05/19 - Discharge Diagnosis (1) Acute respiratory failure Is this a current diagnosis for this admission?: Yes Summary: Patient was intubated in the emergency department. He was able to be extubated several days later. Etiology of the respiratory failure was presumed to be meni ngitis. (2) Encephalopathy acute Is this a current diagnosis for this admission?: Yes Summary: Encephalopathy was presumed to be related to an infectious process. CSF showed no bacteria. It was probably viral etiology. Blood cultures were negative. He did have an elevated white blood cell count. Encephalopathy has completely resolved. (3) Leukocytosis Is this a current diagnosis for this admission?: Yes Summary: White blood cell count is down to 15,000 today. It was 22,000 and on . He also has a tooth infection and this could be wide white blood cell count is slow to normalize. (4) Meningitis Is this a current diagnosis for this admission?: Yes Summary: The spinal fluid was no growth. There are no significant amount of white blood cells. There is no bacterial meningitis. With no white blood cells it was not likely a viral meningitis. Certainly aseptic meningitis or viral encephalitis could be the causative agents however this would be impossible to prove. Con tinue symptomatic treatment. The patient is much better. (5) Rash Is this a current diagnosis for this admission?: Yes Summary: Most likely related to the etiology for the hospitalization. Possibly viral. [place] spotted fever unlikely. The rash did clear up promptly. (6) Headache Is this a current diagnosis for this admission?: Yes Summary: The patient has a history of headaches. He states that when he has a headache he usually takes an energy drink. Those typically have caffeine plus other agents. I explained that this could be migraine related. He was getting some relief with Fioricet and therefore I will give him a prescription for Fioricet as an outpatient. 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 This does make him susceptible to certain infections. His did say that any infection affects the patient significantly. Once again no specific agent was identified. Viral is likely. (8) Infected tooth Is this a current diagnosis for this admission?: Yes Summary: The patient states that he was treated for dental infection several weeks ago. It resolved on clindamycin. They were going to extract the tooth but his blood pressure was too high at that visit. Clindamycin resolve the infection. He states that the tooth is hurting. This could be contributing to his headache. Blood cultures were negative. It is unlikely that an infection in the tooth because the entire respiratory failure and elevated white count however it is certainly a consideration. We will discharge the patient on clindamycin as this is been effective before. - Additional Information Resuscitation Status: Full Code Discharge Diet: Regular Discharge Activity: Activity As Tolerated, Balance Activity w/Rest Prescriptions: Butalb/Acetaminophen/Caffeine [Fioricet (50-325-40 mg) Tablet] 2 tab PO Q6HP PRN 10 Days #20 each PRN Reason: Clindamycin HCl 300 mg PO Q8 10 Days #30 capsule Home Medications: Acetaminophen [Tylenol Extra Strength 500 mg Tablet] 500 mg PO ASDIR PRN 01/01/19 Ibuprofen [Motrin Ib] 400 mg PO ASDIR PRN 01/01/19 Butalb/Acetaminophen/Caffeine [Fioricet (50-325-40 mg) Tablet] 2 tab PO Q6HP PRN 10 Days #20 each 01/05/19 Clindamycin HCl 300 mg PO Q8 10 Days #30 capsule 01/05/19 History of Present Illness Patient complains of: Headache and rash History of Present Illness: INGRID WESLEY is a 53 year old male who presented with several days of headache. He has a widespread rash as well. He became unresponsive in the emergency department and exhibited leukocytosis with bandemia. He was intubated for his acute respiratory failure and was noted to have pulmonary edema. He was placed on broad-spectrum antibiotics for suspected meningitis and referred to the ospital service for admission. Family had reported several days of headache prior to admission but they were unaware of any contacts with patients with suspected infectious illnesses. Hospital Course Hospital Course: See details above Physical Exam Vital Signs: Temp Pulse Resp BP Pulse Ox 98.1 F 61 16 128/87 H 98 01/05/19 04:28 01/05/19 07:00 01/05/19 04:28 01/05/19 04:28 01/05/19 04:28 Intake & Output 01/04/19 01/05/19 01/06/19 06:59 06:59 06:59 Intake Total 460 1272 Output Total 2225 Balance -1765 1272 Weight 73.9 kg 76.9 kg General appearance: PRESENT: no acute distress Respiratory exam: PRESENT: clear to auscultation [place], symmetrical, unlabored. ABSENT: accessory muscle use, rales, rhonchi, tachypnea, wheezes Cardiovascular exam: PRESENT: RRR, +S1, +S2 GI/Abdominal exam: PRESENT: normal bowel sounds, soft. ABSENT: distended, tenderness Rectal exam: PRESENT: deferred Extremities exam: ABSENT: joint swelling, pedal edema Musculoskeletal exam: PRESENT: ambulatory, normal inspection Neurological exam: PRESENT: alert, awake, oriented to person, oriented to place, oriented to time, oriented to situation, CN II-XII grossly intact Psychiatric exam: PRESENT: appropriate affect, normal mood. ABSENT: agitated, anxious Results Laboratory Results: 01/05/19 05:46 01/05/19 05:46 01/05/19 01/05/19 05:46 05:46 WBC 15.7 H RBC 4.52 Hgb 14.4 D Hct 42.5 MCV 94 MCH 31.8 MCHC 33.8 RDW 13.3 Plt Count 543 H Seg Neutrophils % 51.5 Lymphocytes % 38.2 Monocytes % 6.0 Eosinophils % 3.3 Basophils % 1.0 Absolute Neutrophils 8.1 Absolute Lymphocytes 6.0 H Absolute Monocytes 0.9 Absolute Eosinophils 0.5 Absolute Basophils 0.2 Sodium 137.0 Potassium 4.2 Chloride 103 Carbon Dioxide 25 Anion Gap 9 BUN 14 Creatinine 0.63 Est GFR ( Amer) > 60 Est GFR (Non-Af Amer) > 60 Glucose 148 H Calcium 8.7 12/30/18 23:58 Blood Blood Culture - Final NO GROWTH IN 5 DAYS 12/30/18 23:40 Blood Blood Culture - Final NO GROWTH IN 5 DAYS 12/30/18 12/30/18 12/31/18 23:10 23:10 05:28 Creatine Kinase CK-MB (CK-2) Troponin I < 0.012 < 0.012 NT-Pro-B Natriuret Pep 19 12/31/18 01/02/19 01/02/19 12:04 09:00 09:00 Creatine Kinase 32 L CK-MB (CK-2) 0.31 Troponin I < 0.012 < 0.012 NT-Pro-B Natriuret Pep 01/02/19 01/02/19 01/03/19 16:15 16:15 00:15 Creatine Kinase 21 L 28 L CK-MB (CK-2) 0.29 Troponin I < 0.012 NT-Pro-B Natriuret Pep 01/03/19 00:15 Creatine Kinase CK-MB (CK-2) < 0.22 Troponin I < 0.012 NT-Pro-B Natriuret Pep Impressions: Head CT 12/31/18 00:08 IMPRESSION: No acute intracranial abnormality. TECHNICAL DOCUMENTATION: Quality ID # 436: Final reports with documentation of one or more dose reduction techniques (e.g., Automated exposure control, adjustment of the mA and/or kV according to patient size, use of iterative reconstruction technique) copyright 2010 [employer]- All Rights Reserved Chest/Abdomen CTA 12/31/18 00:56 IMPRESSION: No CT evidence of acute pulmonary embolism. Colonic diverticulosis without evidence of diverticulitis. TECHNICAL DOCUMENTATION: Quality ID # 436: Final reports with documentation of one or more dose reduction techniques (e.g., Automated exposure control, adjustment of the mA and/or kV according to patient size, use of iterative reconstruction technique) copyright 2010 [employer]- All Rights Reserved Chest X-Ray 01/02/19 06:00 IMPRESSION: Extubation. Improved aeration with minimal residual left basilar opacities, likely atelectasis. Head MRI 01/04/19 16:00 IMPRESSION: NORMAL MRI OF THE BRAIN WITHOUT INTRAVENOUS GADOLINIUM CONTRAST. EVIDENCE OF ACUTE STROKE: NO. Qualifiers - * PATIENT BEING DISCHARGED WITH ANY OF THE FOLLOWING DIAGNOSIS: No Acute Heart Failure - Is this a Heart Failure Patient?: No Plan Time Spent: Greater than 30 Minutes
== END 2019-01-05 13:29 | disposition home or self-care (01) | DRG 208 ==
LOC: ER 22:39 → EH 12-31 04:37 → ICU 12-31 06:36 → 3W 01-02 20:52
PROVIDERS: ADMIT Internal Medicine; ATTEND Internal Medicine
PROC: 5A1945Z Respiratory Ventilation, 24-96 Consecutive Hours (ICD-10-PCS; principal; 2018-12-31)
PROC: 0BH17EZ Insertion of Endotracheal Airway into Trachea, Via Natural or Artificial Opening (ICD-10-PCS; 2018-12-31)
PROC: 02HV33Z Insertion of Infusion Device into Superior Vena Cava, Percutaneous Approach (ICD-10-PCS; 2018-12-31)
PROC: 009U3ZX Drainage of Spinal Canal, Percutaneous Approach, Diagnostic (ICD-10-PCS; 2018-12-31)
DX: J96.01 Acute respiratory failure with hypoxia (principal); G03.9 Meningitis, unspecified; G93.40 Encephalopathy, unspecified; R55 Syncope and collapse; L50.9 Urticaria, unspecified; M45.9 Ankylosing spondylitis of unspecified sites in spine; R21 Rash and other nonspecific skin eruption; R51 Headache; Z90.81 Acquired absence of spleen
CPT/HCPCS: 36415; 62270; 70450; 70551; 71045; 71275; 80048; 80053; 80202; 80307; 81001; 82140; 82550; 82553; 82803; 82962; 83036; 83605; 83735; 83880; 84100; 84484; 85025; 85610; 85652; 85730; 86140; 86738; 86812; 87040; 87070; 87205; 89050; 93005; 93010; 94002; 94003; 94660; 96361; 96365; 96366; 96367; 96372; 96375; 99291; C1751; J0133; J0171; J0696; J1100; J1200; J1644; J1885; J1956; J2250; J2300; J2704; J2930; J3010; J3370; J3490; J7030; J7042; J7050; J7060; J7620; S0028; S0164